=== PATIENT | male | born 1950 | race Two or more races ===

== ENCOUNTER 2019-03-06 15:24 | Emergency (ER) | payer OTHER ==
[~2019-03-06] VITALS: Ht 167.6 cm; Wt 77.1 kg
[2019-03-06] MEDS ORDERED: LORazepam 2MG/ML-1ML VIAL ONE (15:52)
[2019-03-06] MEDS ORDERED: LORazepam 2MG/ML-1ML VIAL IV ONE ×2 (16:00)
[2019-03-06 16:14] LABS: Basophils # (auto) 0 uL; Basophils % (auto) 0.3 % (0.0-2.0); Eosinophils # (auto) 0 uL; Nucleated Red Blood Cells % 0.1 %; Platelet Count (auto) 188 10^3/uL (140-450); White Blood Cell 9.3 10^3/uL (4.4-10.8)
[2019-03-06] MEDS ORDERED: GLUCAGON HYDROCHLORIDE (RDNA) 1 MG VIAL IV ONE (16:15)
[2019-03-06 16:16] LABS: Eosinophils % (auto) 0.4 % (0.0-7.0); Hematocrit 34.1 % (41.0-53.0); Hemoglobin 10.6 g/dL (13.5-17.5); Lymphocytes # (auto) 2.7 uL; Lymphocytes % (auto) 29.6 % (10.0-50.0); Mean Corpuscular Hemoglobin 18.7 pg (28.0-32.0); Mean Corpuscular Volume 60.3 fL (80.0-100.0); Monocytes # (auto) 0.6 uL; Monocytes % (auto) 6.3 % (0.0-12.0); Neutrophils # (auto) 5.9 uL; Neutrophils % (auto) 63.4 % (37.0-80.0); Red Blood Cells 5.65 10^6/uL (4.5-5.90); Red Cell Distribution Width 18.8 % (11.8-14.3)
[2019-03-06 16:19] LABS: Albumin 3.9 g/dL (3.4-5.0); Anion Gap 10 (5-15); Blood Urea Nitrogen 15 mg/dL (7-18); Calcium 8.7 mg/dL (8.5-10.1); Carbon Dioxide 23 mmol/L (21-32); Chloride 109 mmol/L (98-107); Glucose 120 mg/dL (74-106); Magnesium 2.4 mg/dL (1.6-2.6); Potassium 3.7 mmol/L (3.5-5.1); Sodium 142 mmol/L (136-145)
[2019-03-06 16:24] LABS: Alanine Aminotransferase 18 U/L (16-61); Alkaline Phosphatase 83 U/L (45-117); Aspartate Aminotransferase 16 U/L (15-37); BUN/Creatinine Ratio 10.5; Bilirubin, Total 0.6 mg/dL (0.2-1.0); GFR African American 63 mL/min; GFR Non-African American 52 mL/min; Total Protein 7.9 g/dL (6.4-8.2)
[2019-03-06 16:27] LABS: INR 0.96 (0.9-1.15); Partial Thromboplastin Time 19.1 sec (23.78-33.04); Prothrombin Time 10.3 sec (9.27-12.13)
[2019-03-06] MEDS ORDERED: ONDANSETRON HCL 4 MG/2 ML VIAL IV ONE ×2 (16:30→19:00)
[2019-03-06] MEDS ORDERED: MORPHINE SULFATE 4 MG/ML SYR/VIAL IV ONE (17:00)
[2019-03-06] MEDS ORDERED: HYDROmorphone HCL 2 MG/ML VL IV ONE ×2 (17:15→18:45)
[2019-03-06] MEDS ORDERED: IOHEXOL 350 MG/ML 100ML IJ ONE (17:47)
[2019-03-06] MEDS ORDERED: hydrALAZINE HCL 20 MG/ML VL IV ONE ×3 (18:45→19:15)
[2019-03-06] MEDS ORDERED: ONDANSETRON HCL 4 MG/2 ML VIAL ONE (18:57)
[2019-03-06] MEDS ORDERED: NICARDIPINE 25MG/250ML BAG KIT 250 ML IV ONE (19:06)
[2019-03-06] MEDS ORDERED: NICARDIPINE 25MG/250ML BAG KIT 250 ML IV SCH (19:13)
[2019-03-06] MEDS ORDERED: PROPOFOL 100 ML IV ONE (19:28)
[2019-03-06] MEDS ORDERED: ETOMIDATE (2MG/ML) 20ML VIAL IV ONE ×2 (19:28→19:39)
[2019-03-06] MEDS ORDERED: SUCCINYLCHOLINE CHLORIDE 20 MG/ML 10ML VIAL IV ONE ×2 (19:28→20:15)
[2019-03-06] MEDS ORDERED: PROPOFOL 100 ML IV SCH (20:13)
[2019-03-06] MEDS ORDERED: D5W/SOD CHLO 0.9% 1,000 ML IV ONE (21:00)
[2019-03-06 21:02] VITALS: BP 155/64
== END 2019-03-06 22:04 | disposition short-term general hospital (02) ==
LOC: EDBD 15:24 → ER 15:24
DX: I71.01 Dissection of thoracic aorta (principal); R00.1 Bradycardia, unspecified; I74.09 Other arterial embolism and thrombosis of abdominal aorta; I74.9 Embolism and thrombosis of unspecified artery; K92.2 Gastrointestinal hemorrhage, unspecified; G57.92 Unspecified mononeuropathy of left lower limb; I10 Essential (primary) hypertension; R20.0 Anesthesia of skin
CPT/HCPCS: 31500; 36415; 36600; 51702; 70450; 71045; 71260; 74177; 80053; 82805; 83735; 83880; 84443; 84484; 85025; 85379; 85610; 85730; 93926; 94761; 96365; 96366; 96375; 96376; 99291; 99292; J0330; J0360; J1170; J1610; J2060; J2270; J2405; J2704; Q9967; 96374